=== PATIENT | female | born 1945 | race Caucasian/White ===

== ENCOUNTER 2017-07-09 13:52 | Emergency (ER) | payer OTHER ==
--- NOTE | 2017-07-09 14:47 | UC ---
Respiratory Complaint HPI - HPI Summary HPI Summary: 71 year old female with productive cough for 2 weeks that is worsening. no fever. no cp. no sob. - History of Current Complaint Chief Complaint: UCRespiratory Stated Complaint: COUGH,CONGESTION 7 DAYS Time Seen by Provider: 07/09/17 14:45 Hx Obtained From: Patient Hx Last Menstrual Period: n/a Onset/Duration: Gradual Onset Timing: Constant Severity Initially: Mild Severity Currently: Moderate Character: Cough: Productive Aggravating Factors: Exertion, Nothing Alleviating Factors: Nothing Associated Signs And Symptoms: Positive: URI, Nasal Congestion, Sinus Discomfort - Allergies/Home Medications Allergies/Adverse Reactions: Allergies Allergy/AdvReac Type Severity Reaction Status Date / Time Acetaminophen [From Percocet] Allergy Unknown Verified 07/09/17 14:37 Reaction Details Diazepam [From Valium] Allergy Dizziness Verified 07/09/17 14:37 Hydrochlorothiazide Allergy Unknown Verified 07/09/17 14:37 [From Zestoretic] Reaction Details Hydrocodone Allergy Unknown Verified 07/09/17 14:37 Reaction Details Lisinopril Allergy Unknown Verified 07/09/17 14:37 Reaction Details Morphine Allergy Anaphylatic Verified 07/09/17 14:37 Shock Nitrofurantoin Allergy Unknown Verified 07/09/17 14:37 [From Macrobid] Reaction Details Oxycodone [From Percocet] Allergy Unknown Verified 07/09/17 14:37 Reaction Details Tramadol Allergy Vomiting Verified 07/09/17 14:37 Home Medications: Home Medications Atenolol & Chlorthalidone [Atenolol/Chlorthalidone 100-25 mg-] 1 tab PO DAILY [History Confirmed 07/09/17] Fenofibrate [Triglide] 160 mg PO DAILY 07/09/17 [History Confirmed 07/09/17] Omeprazole CAP* [Prilosec CAP* 20 MG] 20 mg PO DAILY 07/09/17 [History Confirmed 07/09/17] Simvastatin [Zocor 40 MG (NF)] 40 mg PO QPM 07/09/17 [History Confirmed 07/09/17 ] Terazosin CAP* [Hytrin CAP*] 1 mg PO BEDTIME 07/09/17 [History Confirmed ] PMH/Surg Hx/FS Hx/Imm Hx Endocrine History: Dyslipidemia Cardiovascular History: Hypertension GI/ History: Gastroesophageal Reflux - Surgical History Surgical History: Yes Surgery Procedure, Year, and Place: hysterectomy - Family History Known Family History: Positive: Cardiac Disease - Social History Occupation: Retired Lives: With Family Alcohol Use: None Substance Use Type: None Smoking Status (MU): Never Smoked Tobacco - Immunization History Most Recent Influenza Vaccination: 06/23/17 Review of Systems Constitutional: Fatigue ENT: Ear Ache, Nasal Discharge, Sinus Congestion, Sinus Pain/Tenderness Respiratory: Cough Is Patient Immunocompromised?: No All Other Systems Reviewed And Are Negative: Yes Physical Exam Triage Information Reviewed: Yes Appearance: Well-Appearing, No Pain Distress, Well-Nourished Vital Signs: Initial Vital Signs Temp 98.4 F 07/09/17 14:31 Pulse 74 07/09/17 14:31 Resp 18 07/09/17 14:31 BP 128/62 07/09/17 14:31 Pulse Ox 97 07/09/17 14:31 Vital Signs Reviewed: Yes Eye Exam: Normal ENT Exam: Normal Dental Exam: Normal Neck exam: Normal Neck: Positive: 1 Respiratory Exam: Normal Cardiovascular Exam: Normal Musculoskeletal Exam: Normal Neurological Exam: Normal Psychological Exam: Normal Skin Exam: Normal UC Diagnostic Evaluation - Laboratory O2 Sat by Pulse Oximetry: 97 Respiratory Course/Dx - Course Course Of Treatment: treat at this time with the 14 days of worsening cough. normal PE and if Sx worsen go to Ed. She is concerned as she is to go to see her new great grand child that was born this week - Differential Dx/Diagnosis Differential Diagnosis/HQI/PQRI: Bronchitis, Lower Resp Infection, Sinusitis Provider Diagnoses: bronchitis Discharge - Discharge Plan Condition: Good Disposition: HOME Prescriptions: Benzonatate CAP* [Tessalon 100 MG CAP*] 100 mg PO TID #20 cap Cefuroxime Axetil 250 mg PO BID #20 tab Patient Education Materials: Acute Bronchitis (ED) Additional Instructions: Follow up with your primary care physician in 4 days for follow up. If your symptoms worsen then go to seek medical care at the emergency room.
[2017-07-09 15:08] VITALS: BP 128/62
== END 2017-07-09 15:11 | disposition home or self-care (01) ==
LOC: UCCORT 13:52
DX: J40 Bronchitis, not specified as acute or chronic (principal); E78.5 Hyperlipidemia, unspecified; I10 Essential (primary) hypertension; Z88.6 Allergy status to analgesic agent; Z88.5 Allergy status to narcotic agent
CPT/HCPCS: 99202; G0463